=== PATIENT | male | born 1945 | race Hispanic/Latino ===

== ENCOUNTER 2019-04-30 23:33 | Emergency (ER) | payer SELFPAY ==
[~2019-04-30] VITALS: Ht 177.8 cm; Wt 70.3 kg
[2019-05-01] MEDS ORDERED: SUDOGEST30 MG PO (00:05)
[2019-05-01] MEDS ORDERED: VIRTUSSIN AC L118 ML PO (00:05)
== END 2019-05-01 00:58 | disposition home or self-care (01) ==
LOC: ED 23:33
DX: J40 Bronchitis, not specified as acute or chronic (principal); Z79.891 Long term (current) use of opiate analgesic
CPT/HCPCS: 71046; 99283-25